=== PATIENT | male | born 1955 | race Caucasian/White ===

== ENCOUNTER 2017-06-30 21:42 | Inpatient (IN) | payer MEDICARE ==
[~2017-06-30] VITALS: Ht 180.3 cm; Wt 91.8 kg
[~2017-06-30 21:42] MED LIST: ALPR0.5T PO; IPRA3AMP IH
[2017-06-30 21:45] VITALS: BP 202/106; PULSE 95; RESP 35; O2SAT 86
[2017-06-30] MEDS ORDERED: Albuterol 2.5 mg/3 mL Inhalation Solution NEB ONE ×3 (21:54→23:00)
[2017-06-30] MEDS ORDERED: Albuterol-Ipratropium 3 mL Inhalation Solution ONE (21:55)
--- NOTE | 2017-06-30 21:57 | ED.REPORT ---
HPI-Dyspnea / Wheezing Date of Service Jun 30, 2017 ED Provider: Louis Herman MD The pt is a 62 year old male with a hx of COPD presenting to the ED complaining of shortness of breath onset three days ago. He admits to using Albuterol and Duoneb at home without relief a few hours ago. Associated symptoms include coughing, wheezing, headache, and abdominal pain. He denies fever, and nausea. Nursing Notes Stated Complaint: PROBLEMS BREATHING Chief Complaint: Respiratory Distress Nursing Notes Reviewed: Yes Allergies: Coded Allergies: No Known Allergies (Verified Allergy, Unknown, 10/09/14) Scheduled Amlodipine (Amlodipine) 5 Mg Tablet 5 MG PO DAILY Scheduled PRN Ipratropium/Albuterol Sulfate (Iprat-Albut 0.5-3(2.5) mg/3 mL Inhalant Soln) 3 Ml Ampul.neb 3 ML IH Q6 PRN PRN dyspnea General Time Seen by MD: 21:56 Chief Complaint Shortness of breath Hx Obtained From: Patient Arrived By: Walk-in Sudden in Onset?: No Onset Occurred: 3 days ago Associated with: Reports: Cough, Wheeze, Denies: Nausea, Vomiting Recent Healthcare: No recent doctor visit, No recent hospitalization Similar Sx Previous: Yes Past Medical History Past Medical History PRIOR MEDICAL ILLNESSES: 1. Chronic obstructive pulmonary disease with emphysema 2. Anxiety. 3. History of left index finger MRSA abscess, received incision and drainage. Reports: COPD Past Surgical History None Smoking History Current Every Day Smoker Review of Systems Constitutional: Denies: Fever Respiratory: Reports: Non-productive cough, Shortness of breath, Wheezing Complete sys rev & neg: except as marked. GI: Reports: Abdominal pain, Denies: Nausea, Vomiting Neurologic: Reports: Headache (from coughing) Physical Exam Initial Vital Signs Vital Signs (First) Date Time Temp Pulse Resp B/P Pulse Ox O2 Delivery O2 Flow Rate FiO2 06/30/17 21:45 37.0 95 35 202/106 86 Room Air 06/30/17 21:59 3 Initial VS: Reviewed, Vital signs abnormal Head / Eyes: Atraumatic, Normocephalic Abdomen / GI: Soft, Non-tender Back: No CVA tenderness Lymphatic: No lymphadenopathy Extremities: Vascular intact Skin: Warm, Dry Neurologic: Alert Psychiatric: Mood/affect normal General/Constitutional: Awake, Alert Distress / Hydration: Positive: Distress moderate Neck: Atraumatic, Supple, Full range of motion Respiratory / Chest: Atraumatic Resp Distress / Stridor: Positive: Resp distress moderate Wheezing / Retractions: Positive: Wheeze insp/exp diffuse Tachypnic Cardiovascular: Heart rate NL, Regular rhythm, Heart sounds NL Interpretation & Diagnostics Interpretation & Diagnostics: BLOOD GAS REPORT: ARTERIAL pH: 7.371 pCO2: 49 pO2: 27.6 Lab Results Interpretation Result Diagram: 06/30/17 2215 06/30/17 2215 Test 06/30/17 22:15 White Blood Count 11.7th/mm3 (3.8-10.1) Red Blood Count 5.33mil/mm3 (4.40-5.80) Hemoglobin 18.0g/dL (13.8-17.2) Hematocrit 51.7% (41.0-50.0) Mean Corpuscular Volume 97.0fL (81-100) Mean Corpuscular Hemoglobin 33.8pg (27.0-35.0) Mean Corpuscular Hemoglobin Concent 34.8% (32.0-37.0) Red Cell Distribution Width 13.5% (12.3-15.4) Platelet Count 280bil/L (150-400) Neutrophils (%) (Auto) 68.0% (40-74) Lymphocytes (%) (Auto) 15.8% (14-46) Monocytes (%) (Auto) 7.5% (4-12) Eosinophils (%) (Auto) 7.7% (0-5) Basophils (%) (Auto) 0.6% (0-3) D-Dimer 0.71mg/L FEU (<0.50) Sodium Level 136mEq/L (134-144) Potassium Level 4.9mEq/L (3.5-5.2) Chloride Level 97mEq/L (97-108) Carbon Dioxide Level 26mmol/L (18-29) Blood Urea Nitrogen 14mg/dL (8-27) Creatinine 0.91mg/dL (0.76-1.27) Estimat Glomerular Filtration Rate 89mL/min (>59) Glucose Level 109mg/dL (60-99) Lactic Acid Level 1.5mmol/L (0.4-2.0) Calcium Level 9.7mg/dL (8.5-10.1) Magnesium Level 1.6mg/dL (1.6-2.6) Total Bilirubin 0.7mg/dL (0.0-1.2) Aspartate Amino Transf (AST/SGOT) 33U/L (0-50) Alanine Aminotransferase (ALT/SGPT) 30U/L (0-44) Alkaline Phosphatase 108U/L (25-160) Troponin T 0.010ug/L (0.0-0.011) Pro-B-Type Natriuretic Peptide 149.3pg/mL (0-210) Total Protein 7.0g/dL (6.4-8.4) Albumin 3.7g/dL (3.4-5.0) Procalcitonin 0.03ng/mL (0.00-0.08) Lab Results Interpretation: Elevated white blood count and elevated hemoglobin and hematocrit, elevated d-dimer ECG Interpretation ECG Interpretation: Probable left atrial enlargement LAD, consider left anterior fascicular block Probable right ventricular hypertrophy Nonspecific ST elevation, consider inferior injury Rate 98 Unchanged from October 09, 2014 Time: 22:09 Interpreted by: ED physician Normal ECG Interpretation: Normal sinus rhythm X-Ray Chest Interpretation Chest Xray Interpretation: Normal X-Ray No evidence of infiltrate Interpretation / Wet Read by: Wet read ED physician Re-Eval/Medical Decision Med Decision/Clinical Course 62-year-old male presents with acute exacerbation of his COPD. He did respond somewhat to bronchodilators and steroids still remains quite tight. There is no evidence of pneumonia. He will be admitted to the hospital service for further evaluation and treatment. Re-Evaluation/Progress : Time of Eval: 00:16 Re-Evaluation/Progress Note: Patient rechecked. Discussed plan to admit. All questions addressed at this time. Consultation : Referral / Consult Name: Jannette Tse DO Consulted With: Hospitalist Call Returned at: 00:35 Automotive Software Engineer: Will see patient, Agrees with plan, Accepts admit Note: Accepts admit. Counseled Regarding: Diagnosis, Lab results, Need for admission Discharge & Departure Referrals: Jett Renteria (PCP) Scribe Attestation Portions of this note were transcribed by Dion Camarena. I, Dr. Herman personally performed the history, physical exam and medical decision-making; I reviewed and confirmed the accuracy of the information in the transcribed note. Signed by: Dave Fuentes, 06/30/2017 copies to: Jett Renteria Howard L MD Jun 30, 2017 21:57 Jun 30, 2017 22:18
[2017-06-30 21:59] VITALS: PULSE 98; RESP 34; O2SAT 95
[2017-06-30] MEDS ORDERED: Albuterol-Ipratropium 3 mL Inhalation Solution NEB ONE (22:00)
[2017-06-30] MEDS ORDERED: MethylprednisoLONE Sodium Succinate 62.5 mg/mL 2 mL Inj IVPUSH ONE (22:00)
--- NOTE | 2017-06-30 22:11 | ABG ---
DateTimeAnalyzed 22:04:00 -_ pH ____7.371 - 7.350 7.450 pCO2 ___48.8__ -mmHg 35.0 45.0 pO2 157 -mmHg 80.0 100 HCO3- ___27.6__ -mmol/L 22.0 26.0 ABE ____1.8__ -mmol/L -2.0 2.0 tHb ___17.9__ -g/dL 12.0 18.0 O2Hb ___96.1__ -% COHb ____2.0__ -% 1.5 MetHb ____0.9__ -% 0.4 1.5 sO2 ___99.0__ -% 95.0 FIO2 ___50.0__ -% Drawn By AF - Date/Time Notified____ 22:11:00 -_ Liter_Flow ____3.0__ -L/min Oxygen Device 1 __CANNULA - Notified By AF - Notified Whom ___Dr. Leibrand - Age 55 -years B 760 -mmHg tO2 ___24.4__ -Vol% Noel test _Positive -
[2017-06-30 22:18] LABS: BASOPHILS % (AUTO) 0.6 % (0-3); EOSINOPHILS % (AUTO) 7.7 % (0-5); MONOCYTES % (AUTO) 7.5 % (4-12); Mean Corpuscular Hemoglobin 33.8 pg (27.0-35.0); Platelet Count 280 bil/L (150-400)
[2017-06-30 22:29] VITALS: BP 145/91; PULSE 93; RESP 30; O2SAT 100
[2017-06-30 22:41] LABS: TROPONIN T 0.01 ug/L (0.0-0.011)
[2017-06-30 22:52] LABS: Magnesium 1.6 mg/dL (1.6-2.6)
[2017-06-30 23:08] VITALS: BP 169/92; PULSE 96; RESP 30; O2SAT 94
[2017-06-30 23:12] VITALS: PULSE 102; RESP 24; O2SAT 97
[2017-07-01] VITALS (14 sets, daily range): BP systolic 115–170; BP diastolic 65–96; PULSE 80–110; RESP 21–42; O2SAT 87–98
[2017-07-01] MEDS ORDERED: Alum-Mag Hydrox-Simeth 30 mL Suspension PO PRN ×2 (01:20→02:35)
[2017-07-01] MEDS ORDERED: Ondansetron 2 mg/mL 2 mL Inj IVPUSH PRN ×2 (01:20→02:35)
[2017-07-01] MEDS ORDERED: Polyethylene Glycol (PEG) 17 Gm Powder PO PRN (02:35)
--- NOTE | 2017-07-01 03:32 | PCM.HPMED ---
Subjective Date of Service Jul 01, 2017 Primary Provider: Admitting Physician: Jannette Tse DO Primary Care Physician: Noprobin Attending Physician: Jannette Tse DO Chief Complaint: Shortness of Breath, Cough History of Present Illness: Patient is a 62 y/o male with past medical history of COPD who has had three days of increased shortness of breath and cough with intermittent yellow sputum production. Patient used his home DuoNeb with Albuterol without any relief. He waited to see if he could get better with time and the symptoms progressively worsened until yesterday when he came to the ED. Patient denies any fever, CP, N/V/D, or urinary symptoms. Patient reports some MENG, mild bilateral lower extremity swelling, and mild ABD pain associated with the cough. Patient lives at home and is active around the house. He denies any recent travel. He denies any history of leg cramps or calf pains. Patient reports that he used to see Dr. Jin when he was his PCP in [place], and that when these symptoms would happen, he would call in some steroids and these would help relieve his symptoms. Patient reports to have never been intubated due to any respiratory failure secondary to his COPD. In the ED patient was given one dose of 125mg Methylpredisolone, DuoNeb treatments and Albuterol with some symptom relief. Patient was placed on 6L NC with an O2 sat of 94% and patient had a RR of 30. Review of Systems: ROS reviewed and otherwise negative unless noted above. Allergies Coded Allergies: No Known Allergies (Verified Allergy, Unknown, 10/09/14) Home Medications Scheduled Alprazolam (Xanax) 0.5 Mg Tablet 0.5 MG PO BID Scheduled PRN Ipratropium/Albuterol Sulfate (Iprat-Albut 0.5-3(2.5) mg/3 mL Inhalant Soln) 3 Ml Ampul.neb 3 ML IH Q6 PRN PRN dyspnea PMH Chronic obstructive pulmonary disease with emphysema Anxiety. History of left index finger MRSA abscess Surgical History Denies any surgical history Family History Father - CAD, [place] at 43. Social History Hx Alcohol Use: Yes (daily- 4 shots) Hx Substance Use: No Hx Tobacco Use: Yes (used to smoke 1 PPD x 40yrs, now down to 4 cigs/day over last 2 months) Smoking Status: Current Every Day Smoker Living Arrangement: with Family Exam Vital Signs Vital Sign - Last Date Time Temp Pulse Resp B/P Pulse Ox O2 Delivery O2 Flow Rate FiO2 07/01/17 01:31 88 21 170/87 93 Nasal Cannula 3 06/30/17 21:45 37.0 Exam Constitutional: Awake, alert and oriented x3, no acute distress Head: normocephalic and atraumatic Eyes: Pupils equal, round, and reactive to light, EOMI, no scleral icterus Mouth: mucous membranes moist, no posterior oropharynx erythema Heart: regular rate and rhythm. no murmurs, rubs, or gallops. 1+ pitting peripheral edema bilaterally. Lungs: Severe diffuse wheeze throughout with coarse rhonchi throughout. Patient on 3L NC. ABD: soft, nontender, bowel sounds present throughout Musculoskeletal: moves all four extremities appropriately Neuro: CN II-XII intact. no focal deficits. Skin: warm, dry, no rash Psych: appropriate mood and affect. Lab and Diagnostics Labs Item Value Date Time Red Blood Count 5.33 mil/mm3 06/30/172214 Mean Corpuscular Volume 97.0 fL 06/30/172214 Mean Corpuscular Hemoglobin 33.8 pg 06/30/172214 Mean Corpuscular Hemoglobin Concent 34.8 % 06/30/172214 Red Cell Distribution Width 13.5 % 06/30/172214 Neutrophils (%) (Auto) 68.0 % 06/30/172214 Lymphocytes (%) (Auto) 15.8 % 06/30/172214 Monocytes (%) (Auto) 7.5 % 06/30/172214 Eosinophils (%) (Auto) 7.7 % H 06/30/172214 Basophils (%) (Auto) 0.6 % 06/30/172214 Estimat Glomerular Filtration Rate 89 mL/min 06/30/172214 Lactic Acid Level 1.5 mmol/L 06/30/172214 Calcium Level 9.7 mg/dL 06/30/172214 Magnesium Level 1.6 mg/dL 06/30/172214 Total Bilirubin 0.7 mg/dL 06/30/172214 Aspartate Amino Transf (AST/SGOT) 33 U/L 06/30/172214 Alanine Aminotransferase (ALT/SGPT) 30 U/L 06/30/172214 Alkaline Phosphatase 108 U/L 06/30/172214 Troponin T 0.010 ug/L 06/30/172214 Pro-B-Type Natriuretic Peptide 149.3 pg/mL 06/30/172214 Albumin 3.7 g/dL 06/30/172214 Total Protein 7.0 g/dL 06/30/172214 Procalcitonin 0.03 ng/mL 06/30/172214 D-Dimer 0.71 mg/L FEU H 06/30/172214 Result Diagram: 06/30/17221406/30/172214 Microbiology Resp Viral PCR pending Influenza pending X-Rays, CTs and MRIs CXR done in ED, no acute cardiopulmonary process, official read pending. CT Chest - official read pending. Assessment & Plan Patient is a 62 y/o male with past medical history of COPD who has had three days of increased shortness of breath and cough with intermittent yellow sputum production. -Acute Exacerbation of Chronic Obstructive Pulmonary Disease, POA, Active, Stable - Patient admitted with cardinal signs of increased shortness of breath, change in sputum color, and failure of improvement with home rescue meds - Start DuoNeb tx Q4 - Start Albuterol PRN Q2 - Start 40mg Prednisone PO daily - Procalcitonin negative, unlikely bacterial pneumonia source - Obtain Viral PCR - Obtain Influenza screen - Supplement O2 and titrate - Acute Hypercapnea, POA, Active, Stable - Patient admission ABG pH 7.37 with CO2 48.8 with bicarb 27.6, patient is a chronic CO2 retainer - Monitor clinically, and repeat ABG if needed - Treat underlying cause with above regimen - Acute Elevated D- Dimer, POA, Active, Stable - Patient D-dimer elevated at 0.71 on admission with no historical/clinical indication for acute DVT or PE. No leg pain, no recent travel/immobility, patient not tachycardic and denies any dyspnea. - CT Chest done in ED with results pending. - Monitor -Acute Hypertension (Uncontrolled), POA, Active, Stable - Patient hypertensive in the SBP 160-170s on admission, denies any current home medications - Start Lisinopril 10mg BID and monitor -Old records reviewed, patient had echo done in Nov 2016 with estimated EF 65-70 %. PATIENT IS FULL CODE Due to the complexity of case and continued need for care, patient is admitted under inpatient status and expected length of stay is greater than 2 midnights. Pain Evaluation: Adequate Pain Control GI Prophylaxis: H2 alla VTE Prophylaxis Indicated: Meets Criteria for Anticoag Therapy VTE Prophylaxis: Sub-Q Heparin (Unfractionated) VTE Mechanical Devices: Intermittant Pneumatic CD Resuscitation Status: CPR: Attempt Resuscitation Attending Statement The patient was seen and examined together with house staff on 07/01/2017 and I agree with the history, exam and plan as outlined in the note above. Los Cartwright DO Jul 01, 2017 03:32 Jannette Tse DO Jul 01, 2017 06:30
[2017-07-01] MEDS ORDERED: Furosemide 10 mg/mL 4 mL Inj IVPUSH ONE (04:10)
[2017-07-01] MEDS ORDERED: AMLO5TAB2 PO (04:24)
[2017-07-01] MEDS: Albuterol 2.5 mg/3 mL Inhalation Solution NEB PRN ×2 (04:38→07:49)
[2017-07-01] MEDS: Albuterol-Ipratropium 3 mL Inhalation Solution NEB SCH ×5 (04:38→19:50)
--- NOTE | 2017-07-01 05:49 | NUR ---
Admit Patient transferred to floor and walked from [facility] to bed which immediately caused his to become more short of breath. Patient began coughing uncontrollably and was unable to slow his breathing. He continued to breathe at a rate of 40-50 respirations/min. Sputum collected and sent to lab, and PCR viral panel collected. New orders for lasix and tessalon pearles. RT called for another breathing treatment. Patient has finally relaxed and dozed off. Respirations have decreased to 25-30. O2 92% on 4L. HR 98. Patient was oriented to room and call light. Will continue to monitor patient closely.
[2017-07-01 07:16] LABS: BASOPHILS % (AUTO) 0.1 % (0-3); EOSINOPHILS % (AUTO) 0.1 % (0-5); Mean Corpuscular Hemoglobin 33.6 pg (27.0-35.0); Mean Corpuscular Volume 96.4 fL (81-100); NEUTROPHILS % (AUTO) 88.2 % (40-74); Platelet Count 298 bil/L (150-400)
--- NOTE | 2017-07-01 08:15 | DRSVH ---
PROCEDURE: CT ANGIO CHEST PULMONARY EMBOLISM ([id number]) INDICATIONS: dyspnea, elev dimer TECHNIQUE: After the administration of intravenous contrast, 2 mm thick sections acquired from the pulmonary api jens to the posterior costophrenic angles. 3-dimensional maximum intensity projection (MIP) coronal a nd sagittal reformats were then acquired through the thorax. For radiation dose reduction, the follo wing was used: automated exposure control, adjustment of mA and/or kV according to patient size. COMPARISON: None. FINDINGS: Image quality: Degraded by motion and beam hardening artifact. Pulmonary arteries: Pulmonary arteries are normal in size, and demonstrate no intraluminal filling d efects to suggest central pulmonary embolism. Lungs and pleura: Lungs are clear. No pleural effusions or pneumothorax. Central and peripheral ai rways are patent. Mediastinum: Heart size is normal, without pericardial effusion. No mediastinal or hilar adenopathy . Thoracic aorta is normal in caliber and enhancement. Esophagus is normal in caliber, without hiat al hernia. Bones and chest wall: No suspicious bony lesions. Ribs and thoracic spine appear intact throughout. Thyroid gland is within normal limits. No axillary or supraclavicular adenopathy. Abdomen: Visualized upper abdominal solid organs appear normal in the early arterial phase of enhanc ement. IMPRESSION: 1. Limited examination demonstrating no large size central pulmonary embolus. Evaluation of the more peripheral pulmonary vasculature is limited by artifact. 2. No evidence of acute process. 3. Concordant with preliminary interpretation. Dictated by: Chanel Price M.D. on 07/01/2017 at 8:09 Approved by: Chanel Price M.D. on 07/01/2017 at 8:13
--- NOTE | 2017-07-01 08:23 | DRSVH ---
PROCEDURE: X-RAY CHEST ONE VIEW, PORTABLE ([id number]) INDICATIONS: dyspnea TECHNIQUE: One view of the chest was acquired. COMPARISON: [facility], , CHEST 1VW (PORTABLE), 10/09/2014, 10:35. [facility], CR, CHEST 1VW (PORTABLE), 08/29/2013, 5:53. FINDINGS: Surgical changes and devices: None. Lungs and pleura: No pleural effusions or pneumothorax. Lungs are clear. Mediastinum: Mediastinal contours appear normal. Heart size is normal. Bones and chest wall: No suspicious bony lesions. Overlying soft tissues appear unremarkable. IMPRESSION: Mildly reduced inspiratory volume. No acute disease. Dictated by: Vasquez Martin M.D. on 07/01/2017 at 8:21 Approved by: Vasquez Martin M.D. on 07/01/2017 at 8:21
[2017-07-01] MEDS ORDERED: predniSONE 20 mg Tablet PO SCH (08:30)
[2017-07-01] MEDS: Heparin 5,000 Unit/mL Inj SUBQ SCH ×2 (08:43→16:49)
--- NOTE | 2017-07-01 11:39 | NUR ---
Social Work-initial assessment/multidisciplinary rounds: Data:See initial assessment. Pt is a 62 y/o male who was admitted on 07/01/17 for acute exacerbation per H&P. Pt's insurance is [facility] and PCP is [facility]. EMR Reviewed. SW met with pt to discuss discharge planning, SW role explained. Pt is alert and oriented x3. Pt resides at home alone where he remains independent with ADLs. Pt uses a fww or cane at baseline and does drive. Pt has no HH or SNF history. Pt has no long-term care insurance or VA benefits. Pt has completed DPOA/ advanced directive, pt has completed this, SW encouraged a copy to be brought in. Pt has no supplemental insurance, SW discussed SHIBA with pt and provided him with information, he is agreeable. No concerns noted regarding pt's capacity for self care, per RN or MD. Pt's friends to provide transport home at discharge. SW provided pt with discharge planning checklist and encouraged pt to call with any questions,phone number provided on white board in room. No anticipated discharge needs. SW will continue to follow if needs arise. Assessment:Pt who is independent at baseline. Plan:Pt to discharge home when medically stable via POV. No anticipated discharge needs. SW will continue to follow if needs arise. DELMIS Ansari Addendum: 07/01/17 at 1146 by BETTINA NORMAN SS Amended: Links added.
[2017-07-01] MEDS ORDERED: LORazepam 1 mg Tablet PO ONE (14:45)
[2017-07-01] MEDS ORDERED: Influenza (Adult) Vaccine 0.5 mL Syringe IM ONE (15:20)
[2017-07-01] MEDS ORDERED: guaiFENesin DM 200-20 mg/10 mL Syrup PO ONE (18:20)
[2017-07-01] MEDS ORDERED: Polyethylene Glycol (PEG) 17 Gm Powder PO ONE (18:25)
[2017-07-01] MEDS: Polyethylene Glycol (PEG) 17 Gm Powder PO SCH (18:26)
--- NOTE | 2017-07-01 18:28 | NUR ---
Respiratory and BM Respiratory RR 20 to 40s depends on pt's emotional state and activity. He is on 3.5L/min by NC with SpO2 range from 88 to 92%. Tessalon pearles and Robitussin DM were given after he had an episode of coughing spell. Will continue to monitor respiratory status. GI Pt. reported he normally has BM every 4 to 5 days. Last BM was 7 days ago. He is constipated. PRN Senna, Miralax, and prune juice were given. No BM at this moment.
[2017-07-01] MEDS: LORazepam 1 mg Tablet PO PRN (18:33)
[2017-07-02] VITALS (14 sets, daily range): BP systolic 108–130; BP diastolic 67–80; PULSE 89–114; RESP 24–33; O2SAT 88–97
[2017-07-02] MEDS: guaiFENesin DM 200-20 mg/10 mL Syrup PO PRN ×2 (00:01→08:25)
[2017-07-02] MEDS: Heparin 5,000 Unit/mL Inj SUBQ SCH ×3 (00:04→16:52)
[2017-07-02] MEDS: Albuterol 2.5 mg/3 mL Inhalation Solution NEB PRN ×3 (00:05→07:46)
[2017-07-02] MEDS: Albuterol-Ipratropium 3 mL Inhalation Solution NEB SCH ×6 (00:07→20:28)
[2017-07-02] MEDS: LORazepam 1 mg Tablet PO PRN ×3 (00:30→16:51)
--- NOTE | 2017-07-02 05:50 | NUR ---
Respiratory Patient continues to have strong, harsh, barking cough with tachypnea and dyspnea at rest. PRN Ativan given for anxiety r/t respiratory status, able to get some sleep last night. Respiratory treatments: nebs, tessalon pearls, and robitussin. Pt voiding in urinal, 4L O2/NC, sats 88-92%. Plan to continue treatment for respiratory status.
[2017-07-02 06:34] LABS: BASOPHILS % (AUTO) 0.1 % (0-3); EOSINOPHILS % (AUTO) 0.3 % (0-5); MONOCYTES % (AUTO) 6.6 % (4-12); NEUTROPHILS % (AUTO) 82.8 % (40-74); Platelet Count 287 bil/L (150-400)
[2017-07-02] MEDS: Polyethylene Glycol (PEG) 17 Gm Powder PO SCH (07:37)
[2017-07-02] MEDS ORDERED: MethylprednisoLONE Sodium Succinate 40 mg/mL Inj IM ONE (07:50)
[2017-07-02] MEDS ORDERED: Azithromycin Inj 500 MG in Dextrose 5% w/Vial Mate 250 ML IV ONE (07:50)
[2017-07-02] MEDS ORDERED: MethylprednisoLONE Sodium Succinate 40 mg/mL Inj IV ONE (08:35)
[2017-07-02] MEDS: MethylprednisoLONE Sodium Succinate 40 mg/mL Inj IVPUSH SCH ×2 (08:38→16:52)
--- NOTE | 2017-07-02 10:16 | NUR ---
Anxiety/SOB Patient awoke shortly after shift change w/ moderate anxiety, diaphoresis, coughing & wheezing. Stated "I don't like all this stuff", in reference to tele wires/continuous pulse ox, etc. Portable telemetry placed, continuous pulse ox removed from finger. RT called for neb tmt d/t significant wheezing/coughing, lorazepam mg, robitussen, tessalon pearles, solu-medrol, admin. Md assessed patient shortly after episode, stated we need to assess for possible transfer to 2nd floor/Bipap, patient currently dozing on & off, states his breathing is better, RR continues to be 30's, no change in mentation, 4L O2 via NC intact. Md asked for home Xanax dose vs Lorazepam per patients request & MS IV for episodes of respiratory distress.
--- NOTE | 2017-07-02 14:18 | NUR ---
Transfer to [facility] Patient transferred to [facility] for Bipap per Md order around 1300. Report given to Lay Hurst RN. O x 3, vitals stable upon transfer. Transported in bed w/ all belongings, chart & azithromycin IV for tomorrow a.m., transported on 4L O2 via NC. Asked Md about changing Lorazepam po to Xanax per patient request, MS IV for respiratory distress, & fleets enema d/t no bm in >11 days. Receiving RN aware patient is requiring an enema as well as his wish to get cleaned up once he's stable.
[2017-07-02 14:36] LABS: BASOPHILS % (AUTO) 0.1 % (0-3); EOSINOPHILS % (AUTO) 0.1 % (0-5); MONOCYTES % (AUTO) 1.3 % (4-12); Mean Corpuscular Hemoglobin 33.9 pg (27.0-35.0); NEUTROPHILS % (AUTO) 92.8 % (40-74); Platelet Count 267 bil/L (150-400)
--- NOTE | 2017-07-02 14:57 | ABG ---
DateTimeAnalyzed 14:54:22 -_ pH ____7.377 - 7.350 7.450 pCO2 ___45.2__ -mmHg 35.0 45.0 pO2 ___96.7__ -mmHg 80.0 100 HCO3- ___26.5__ -mmol/L 22.0 26.0 ABE ____1.1__ -mmol/L -2.0 2.0 tHb ___16.2__ -g/dL 12.0 18.0 O2Hb ___97.1__ -% COHb ____1.7__ -% 1.5 MetHb ____0.0__ -% 0.4 1.5 sO2 ___98.6__ -% 95.0 AaDpO2 __101.8__ -mmHg FIO2 ___35.0__ -% Drawn By rs - Date/Time Notified____ 14:56:00 -_ Oxygen Device 1 ____BIPAP - Notified By rs - Notified Whom SONG, JONGWOO - Age 55 -years K+ ____4.9__ -mmol/L 3.5 5.0 Noel test _Positive -
[2017-07-02 15:10] LABS: Magnesium 1.6 mg/dL (1.6-2.6); Phosphorus 2.3 mg/dL (2.5-4.9)
--- NOTE | 2017-07-02 15:54 | NUR ---
took over patient care from SVEN Gibbsadrian Andrews 1550 Addendum: 07/02/17 at 1727 by ADAM RUDOLPH CNA transferred patient care back to 172
--- NOTE | 2017-07-02 16:20 | NUR ---
Transfer, Bowel Movement 1255 - Received report from Chandni Ortiz RN on [facility]. 1310 - He arrived from [facility] 3015 to [facility] 2005 and was settled into his room. His chart, belongings, and medications were brought with him. Respiratory Therapist Christina Walters came and set up the BiPAP for him. 1620 - He has worn the BiPAP most of the time except when using the restroom. He refused to wear any kind of O2 the first time and the second time he accepted 4L of O2 via a nasal cannula. Education was provided for him, but he still didn't want to use BiPAP. He became even more short of breath afterwards and requested to be placed back on the BiPAP which he was. He was finally able to have a bowel movement this afternoon after not having one for 11-12 days. Care continues. Addendum: 07/02/17 at 1833 by ALURA ROTHMAN RN 1826 - Dr. Devries called and was given a verbal update on his condition. He wanted staff to watch him closely during the night. Care continues.
[2017-07-02] MEDS ORDERED: cefTRIAXone Inj 2,000 MG in Dextrose 5% Minibag Plus 50 ML IV ONE (16:35)
--- NOTE | 2017-07-02 16:54 | PCM.PNMED ---
Subjective Date of Service Jul 02, 2017 Subjective pt still had tachypnea 30s with persistent cough, maintain his mentation hypoxia continued. therefore prednisone switched to solu-medrol. pt was transferred to [facility] for BiPAP. ABG on Fio2 35% showed PCo2 45, Po296 seems to be comfortable on BiPAP. CXR showed new left base opacity, abx started. Exam Vital Signs Vital Sign - Last Date Time Temp Pulse Resp B/P Pulse Ox O2 Delivery O2 Flow Rate FiO2 07/02/17 13:22 36.8 99 24 127/77 88 Nasal Cannula 4.00 Intake and Output 07/01/17 07/01/17 07/02/17 Cumulative From/Thru 15:00 23:00 07:00 06/30/17 21:45 - 07/02/17 05:48 Intake Total 966 ml 708 ml 1674 ml Output Total 1900 ml 400 ml 2300 ml Balance -934 ml 308 ml -626 ml Intake Oral 966 ml 708 ml 1674 ml Output Urine Total 1900 ml 400 ml 2300 ml # Voids 1 1 Exam Very distressed with persistent cough and SOB. using accessory m, labored no JVD, MMM, no LAD tachycardic nl s1, s2 no mrg polyphasic prolonged exp wheezing, no crackles, S,ND,NT,normoactive BS+ warm, no edema, pulses 2/2 IVs and Medications Medications Reviewed: Medications were reviewed in detail Lab and Diagnostics Result Diagram: 07/02/17 1426 07/02/17 142 Microbiology Resp Viral PCR pending Influenza pending X-Rays, CTs and MRIs CXR done in ED, no acute cardiopulmonary process, official read pending. CT Chest - official read pending. Assessment & Plan Patient is a 62 y/o male with past medical history of COPD who has had three days of increased shortness of breath and cough with intermittent yellow sputum production. Acute, actrive Acute hypercapnic respiratory failure secondary to COPD exacerbation, POA, inital CTA unremarkable, no PE, no infiltrate. CXR clean. infectious w/u resp PCR, sputum, flu all ngtd. -clinically worse today, switched prednisone to solu-medrol 40mg q6h, -continue duonebs q4h, albuterol q2h prn, -BiPAP started 07/02 pm, serial ABG if needed. -consider consulting pulmonary if clinically worsens, any deterioration of MS. -O2 supplement target>92-95%, pt doesn't have baseline hypercapnia. -started CFX, azithromycin today given CXR finding, new infiltrate at left base chronic, stable, Hypertension (Uncontrolled), Patient hypertensive in the SBP 160-170s on admission, denies any current home medications, Started Lisinopril 10mg BID and monitor -controlled, continue ACEI for now -Old records reviewed, patient had echo done in Nov 2016 with estimated EF 65-70 %. PATIENT IS FULL CODE dispo: pending, prolonged. GI Prophylaxis: H2 alla VTE Prophylaxis: Sub-Q Heparin (Unfractionated) VTE Mechanical Devices: Intermittant Pneumatic CD Resuscitation Status: CPR: Attempt Resuscitation Time spent 35min Angel Luis Devries MD Jul 02, 2017 16:54
--- NOTE | 2017-07-02 17:28 | DRSVH ---
PROCEDURE: X-RAY CHEST ONE VIEW, PORTABLE ([id number]) INDICATIONS: severe respiratory distress TECHNIQUE: One view of the chest was acquired. COMPARISON: [facility], CT, CT ANGIO CHEST PE, 07/01/2017, 3:17. [facility], CR, XR CHEST 1VW (PORTABLE), 06/30/2017, 22:23. FINDINGS: Surgical changes and devices: None. Lungs and pleura: No pleural effusions or pneumothorax. Lungs are clear, aside from air space opaci ty involving the left lung base. Mediastinum: Mediastinal contours appear normal. Heart size is normal. Bones and chest wall: No suspicious bony lesions. Overlying soft tissues appear unremarkable. IMPRESSION: Left basilar atelectasis versus aspiration or pneumonia. Correlate clinically. Dictated by: Ravindra Whitt RRA Interpreted: Vasquez Martin MD on 07/02/2017 at 14:59 Approved by: Vasquez Martin M.D. on 07/02/2017 at 17:24
--- NOTE | 2017-07-02 21:53 | NUR ---
Patient refused to wear bipap even after settings were adjusted, Rn informed patient on 2L NC and stat are WNL no distress noted
[2017-07-03] VITALS (13 sets, daily range): BP systolic 131–155; BP diastolic 80–96; PULSE 88–100; RESP 18–24; O2SAT 90–96
[2017-07-03] MEDS: MethylprednisoLONE Sodium Succinate 40 mg/mL Inj IVPUSH SCH ×3 (00:10→17:18)
[2017-07-03] MEDS: LORazepam 1 mg Tablet PO PRN ×2 (00:10→10:05)
[2017-07-03] MEDS: Heparin 5,000 Unit/mL Inj SUBQ SCH ×3 (00:11→17:18)
[2017-07-03] MEDS: Albuterol-Ipratropium 3 mL Inhalation Solution NEB SCH ×6 (00:56→20:38)
[2017-07-03] MEDS: guaiFENesin DM 200-20 mg/10 mL Syrup PO PRN (02:30)
[2017-07-03 02:38] LABS: BASOPHILS % (AUTO) 0.1 % (0-3); EOSINOPHILS % (AUTO) 0 % (0-5); MONOCYTES % (AUTO) 3.9 % (4-12); Mean Corpuscular Hemoglobin 34.2 pg (27.0-35.0); Mean Corpuscular Volume 98.2 fL (81-100); Platelet Count 294 bil/L (150-400)
[2017-07-03 03:03] LABS: Magnesium 1.8 mg/dL (1.6-2.6)
--- NOTE | 2017-07-03 03:54 | NUR ---
Respiratory Pt only able to tolerate bipap for short periods of time. RT educated pt on importance of wearing and pt still declines. Pt placed on 2L NC and SpO2 WNL. Pt has persistent non productive cough, administered PRN Robitussin DM and effective. VSS and Tele SR/T
[2017-07-03] MEDS ORDERED: Glucose 40% Oral Gel 15 Gm Tube PO PRN (06:45)
[2017-07-03] MEDS: Insulin LISPRO 300 Unit/3 mL Inj SUBQ SCH ×4 (08:00→21:22)
[2017-07-03] MEDS: Polyethylene Glycol (PEG) 17 Gm Powder PO SCH (08:30)
[2017-07-03] MEDS: Azithromycin Inj 500 MG in Dextrose 5% w/Vial Mate 250 ML IV SCH (08:42)
[2017-07-03] MEDS: guaiFENesin 600 mg ER12 Tablet PO SCH ×2 (09:27→21:19)
[2017-07-03] MEDS ORDERED: Albuterol-Ipratropium 3 mL Inhalation Solution NEB PRN (10:45)
[2017-07-03] MEDS ORDERED: fentaNYL-PF 50 mCg/mL 2 mL Inj IVPUSH ONE (10:55)
[2017-07-03] MEDS ORDERED: fentaNYL-PF 50 mCg/mL 2 mL Inj IVPUSH PRN ×2 (11:20→17:20)
--- NOTE | 2017-07-03 11:33 | PCM.PNMED ---
Subjective Date of Service Jul 03, 2017 Subjective Upon examination today the patient complains of SOB and productive cough, he states that he "Does not get along with" the Bpap. He otherwise denies chest pain, abdominal pain, nausea, vomiting, or diarrhea. He does endorse some anxiety beyond his baseline, mostly due to SOB. He explains that he essentially has no prescription drug coverage thus he is not taking any medication at home. He smokes approximately 4-5 cigarettes per day. Overnight the patient worsened in terms of respiratory status with desaturation , he was transitioned to a Bpap and transferred to the [facility]. Exam Vital Signs Vital Sign - Last Date Time Temp Pulse Resp B/P Pulse Ox O2 Delivery O2 Flow Rate FiO2 07/03/17 08:09 36.7 90 24 131/83 92 Nasal Cannula 2.00 07/03/17 00:56 30 Intake and Output 07/02/17 07/02/17 07/03/17 Cumulative From/Thru 15:00 23:00 07:00 06/30/17 21:45 - 07/03/17 06:50 Intake Total 436 ml 695 ml 2805 ml Output Total 200 ml 1100 ml 3600 ml Balance 236 ml -405 ml -795 ml Intake Oral 436 ml 630 ml 2740 ml IV Total 65 ml 65 ml Output Urine Total 200 ml 1100 ml 3600 ml # Voids 1 Exam Gen: A/O x3 pleasant cooperative gentleman in moderate acute distress secondary to SOB and anxiety Neck: Supple, non tender, no JVD HEENT: PERRL, EOMI, no scleral icterus, mucous membranes dry CV: RRR, no murmurs rubs or gallops Resp: Significant diffuse rhoncorous breath sounds with diffuse expiratory wheezing, increased work of breathing with good air movement, wet sounding cough Abd: Soft, non tender, no rebound masses or guarding Extr: Clubbing of digits BL, no cyanosis, mild BL LE pitting edema Neuro: CN 2-12 grossly intact, no focal neurologic deficit Psych: Patient with significant anxiety about his SOB, otherwise pleasant and cooperative. . IVs and Medications Medications Reviewed: Medications were reviewed in detail Lab and Diagnostics Item Value Date Time Red Blood Count 4.94 mil/mm3 07/03/17224 Mean Corpuscular Volume 98.2 fL 07/03/17224 Mean Corpuscular Hemoglobin 34.2 pg 07/03/17224 Mean Corpuscular Hemoglobin Concent 34.8 % 07/03/17224 Red Cell Distribution Width 13.2 % 07/03/17224 Neutrophils (%) (Auto) 87.0 % H 07/03/17224 Lymphocytes (%) (Auto) 8.3 % L 07/03/17224 Monocytes (%) (Auto) 3.9 % L 07/03/17224 Eosinophils (%) (Auto) 0 % 07/03/17224 Basophils (%) (Auto) 0.1 % 07/03/17224 Estimat Glomerular Filtration Rate 69 mL/min 07/03/17224 Calcium Level 9.4 mg/dL 07/03/17224 Phosphorus Level 3.0 mg/dL 07/03/17224 Magnesium Level 1.8 mg/dL 07/03/17224 Aspartate Amino Transf (AST/SGOT) 25 U/L 07/03/17224 Total Bilirubin 0.2 mg/dL 07/03/17224 Alanine Aminotransferase (ALT/SGPT) 29 U/L 07/03/17224 Alkaline Phosphatase 87 U/L 07/03/17224 Total Protein 6.3 g/dL L 07/03/17224 Albumin 3.8 g/dL 07/03/17224 Result Diagram: 07/03/1722407/03/17224 Microbiology Resp Viral PCR pending Influenza pending X-Rays, CTs and MRIs CT ANGIO CHEST PULMONARY EMBOLISM IMPRESSION: 1. Limited examination demonstrating no large size central pulmonary embolus. Evaluation of the more peripheral pulmonary vasculature is limited by artifact. 2. No evidence of acute process. 3. Concordant with preliminary interpretation. Dictated by: Chanel Price M.D. on 07/01/2017 at 8:09 Approved by: Chanel Price M.D. on 07/01/2017 at 8:13 X-RAY CHEST ONE VIEW, PORTABLE IMPRESSION: Left basilar atelectasis versus aspiration or pneumonia. Correlate clinically. Dictated by: Ravindra Whitt RRA Interpreted: Vasquez Martin MD on 07/02/2017 at 14 :59 Approved by: Vasquez Martin M.D. on 07/02/2017 at 17:24 . Assessment & Plan Patient is a 62 y/o male with past medical history of COPD who has had three days of increased shortness of breath and cough with intermittent yellow sputum production. Following admission the patient decompensated from a respiratory standpoint and was transitioned to Bpap. Acute hypercapnic respiratory failure secondary to COPD exacerbation, POA, Active -inital CTA unremarkable, no PE, no infiltrate. CXR clean.Procalc negative -Solu-medrol 40 mg Q8 -continue duonebs q4h scheduled with Q4 PRN alternating, albuterol q2h prn, -BiPAP started 07/02 pm, serial ABG if needed. -Pulmonary medicine has been consulted and we appreciate their recommendations -O2 supplement target>92-95%, pt doesn't have baseline hypercapnia. -started CFX, azithromycin today given CXR finding, new infiltrate at left base Hypertension (Uncontrolled), -Started Lisinopril 10mg BID and monitor -controlled, continue ACEI for now Anxiety, POA, chronic. Active -Using Xanax 0.5 mg PO PRN, this is a substantial reduction of his home dosing so as not to induce respiratory depression. -Old records reviewed, patient had echo done in Nov 2016 with estimated EF 65-70 %. PATIENT IS FULL CODE dispo: Patient will likely have a somewhat protracted hospital stay given his poorly controlled disease and lack of outpatient resources. All efforts should be made to connect the patient with insurance services to get prescription drug coverage; otherwise re-admission is highly likely. Anticipate DC in 3-5 days pending response to medical therapy. . Pain Evaluation: Adequate Pain Control GI Prophylaxis: H2 alla VTE Prophylaxis: Sub-Q Heparin (Unfractionated) VTE Mechanical Devices: Intermittant Pneumatic CD Resuscitation Status: CPR: Attempt Resuscitation Time spent 25 minutes Attending Statement Patient has been seen and examined by myself with registered medical assistant and agree with above history, physical, assessment and plan. Eliud Ahuja DO Jul 03, 2017 11:33 Danni Singleton MD Jul 03, 2017 15:34
--- NOTE | 2017-07-03 14:50 | PCM.PNMED ---
Subjective Date of Service Jul 03, 2017 Subjective /Pulmonary Consultation Note Mr. Chun is a 62 yo male who presented to the hospital for worsening SOB and CLARK x 3-4 days. Patient reports that his breathing status has been worse in the last month, but severely deteriorated in the last week. He denies any recent sick contact and also denies any F/C, CP. N/V, or rash. He has noted an increase in his cough and some mild clear phlegm production. He also endorses a mild MENG and constipation. He noted that he was not able to walk more than 10 feet before becoming severely dyspneic. He states that he is not able to afford any inhalers, so he did not have any at home. He has been diagnosed with COPD for a long time now and has over 40 pack year history of tobacco usage and currently smokes 3-4 cigarettes a day. He denies any previous exacerbations requiring hospitalizations or intubations, but reports that he does receive steroid tapers and antibiotics 1-2x a year. During this admission, he so far has been treated with IV steroids and scheduled Duonebs for his COPD exacerbation. He has been requiring 3-6 Liters of O2 by NC or Oxymask to maintain saturations, but is still fairly tachypneic and working hard to breath. He had a blood gas on 06/30 that showed mild hypercapnia with pCO2 of 48.8 and a pO2 of 157 while on 3 L of NC. He was placed on BiPAP due to his increased work of breathing and hypercapnia. There was also note of a LLL infiltrate that has been presumed to be CAP, so he was placed on Ceftriaxone and Azithromycin. Exam Vital Signs Vital Sign - Last Date Time Temp Pulse Resp B/P Pulse Ox O2 Delivery O2 Flow Rate FiO2 07/03/17 12:20 36.0 93 22 134/88 92 BiPAP 07/03/17 12:03 30 07/03/17 08:09 2.00 Intake and Output 07/02/17 07/02/17 07/03/17 Cumulative From/Thru 15:00 23:00 07:00 06/30/17 21:45 - 07/03/17 06:50 Intake Total 436 ml 695 ml 2805 ml Output Total 200 ml 1100 ml 3600 ml Balance 236 ml -405 ml -795 ml Intake Oral 436 ml 630 ml 2740 ml IV Total 65 ml 65 ml Output Urine Total 200 ml 1100 ml 3600 ml # Voids 1 Exam Gen: A/O x3 pleasant cooperative gentleman in moderate acute respiratory distress while on 3L O2 by NC. HEENT: PERRL, EOMI, no scleral icterus, mucous membranes mildly dry Neck: Supple, non tender, no JVD noted CV: RRR, no murmurs rubs or gallops, peripheral pulses intact and equal Resp: Severe diffuse Rhonchi with diffuse moderate expiratory wheezing, Mildly tachypneic at rest but speaks full sentences, wet sounding cough, barrel chested Abd: Soft, non tender, no rebound masses or guarding, +BS Extr: Moderate clubbing of all distal digits, no cyanosis, Trace bilateral pedal pitting edema Neuro: Grossly intact, no focal weakness Skin: Mildly diaphoretic, but warm Psych: Patient with significant anxiety about his SOB, otherwise pleasant and cooperative. . IVs and Medications Medications Reviewed: Medications were reviewed in detail Lab and Diagnostics Result Diagram: 07/03/1722407/03/17224 X-Rays, CTs and MRIs CT ANGIO CHEST PULMONARY EMBOLISM IMPRESSION: 1. Limited examination demonstrating no large size central pulmonary embolus. Evaluation of the more peripheral pulmonary vasculature is limited by artifact. 2. No evidence of acute process. 3. Concordant with preliminary interpretation. Dictated by: Chanel Price M.D. on 07/01/2017 at 8:09 Approved by: Chanel Price M.D. on 07/01/2017 at 8:13 X-RAY CHEST ONE VIEW, PORTABLE IMPRESSION: Left basilar atelectasis versus aspiration or pneumonia. Correlate clinically. Dictated by: Ravindra Whitt [facility] Interpreted: Vasquez Martin MD on 07/02/2017 at 14 :59 Approved by: Vasquez Martin M.D. on 07/02/2017 at 17:24 . Additional Diagnostics DateTimeAnalyzed 14:54:22 -_ pH ____7.377 - 7.350 7.450 pCO2 ___45.2__ -mmHg 35.0 45.0 pO2 ___96.7__ -mmHg 80.0 100 HCO3- ___26.5__ -mmol/L 22.0 26.0 ABE ____1.1__ -mmol/L -2.0 2.0 tHb ___16.2__ -g/dL 12.0 18.0 O2Hb ___97.1__ -% COHb ____1.7__ -% 1.5 MetHb ____0.0__ -% 0.4 1.5 sO2 ___98.6__ -% 95.0 AaDpO2 __101.8__ -mmHg FIO2 ___35.0__ -% Drawn By rs - Date/Time Notified____ 14:56:00 -_ Oxygen Device 1 ____BIPAP - Notified By rs - Assessment & Plan Patient is a 62 y/o male with past medical history of COPD who has had three days of increased shortness of breath and cough with intermittent yellow sputum production. Following admission the patient had increased Work of breathing, so he was transitioned to Bipap. Acute on chronic hypercapnic hypoxemic respiratory failure secondary to COPD exacerbation, POA, Active -CTA unremarkable on admission other than COPD. -Continue Duonebs q4h scheduled and PRN Albuterol. Continue Solumedrol with plans for titration as he responds to therapy -Continue BiPAP at 12/6. Continue to wean down as tolerated -With his Severe COPD, will titrate O2 target at 88-92% -Reasonable to continue Ceftriaxone an Azithromycin due to the new LLL infiltrate -Can give Fentanyl 50mcg Q4h for anxiety, respiratory distress, or air hunger. He has responded well to fentanyl which improved his work of breathing and ventilation while on Bipap. - Encourage Acapella and PT as tolerated -Repeat ABG and CXR in AM Hypertension (Uncontrolled), -Stable, as managed by primary team Anxiety, POA, chronic. Active -Preferably use the Fentanyl for his anxiety and air hunger. Hyperglycemia, POA HgbA1c pending, likely due to steroid usage. We appreciate the consult, will continue follow along with this patient until he is more stable respiratory lane Pain Evaluation: Adequate Pain Control GI Prophylaxis: H2 alla VTE Prophylaxis: Sub-Q Heparin (Unfractionated) VTE Mechanical Devices: Intermittant Pneumatic CD Resuscitation Status: CPR: Attempt Resuscitation Time spent Total care time spent in direct patient care 45 minutes. Attending Statement Tobacco counseling performed at bedside. We will continue to help the patient with smoking cessation. Patient seen and examined. Pertinent labs and imaging reviewed. Findings reviewed and discussed with the resident. Amendments made verbally with the resident and/or directly on this document. Agree with the above. Miki Raymond DO Jul 03, 2017 12:33 Rusty Mota MD Jul 03, 2017 15:21
[2017-07-03] MEDS ORDERED: 0.9% Sodium Chloride 1,000 ML IV ONE (14:55)
[2017-07-03] MEDS ORDERED: cefTRIAXone Inj 2,000 MG in Dextrose 5% Minibag Plus 50 ML IV SCH (16:30)
--- NOTE | 2017-07-03 16:59 | ABG ---
DateTimeAnalyzed 16:54:42 -_ pH ____7.394 - 7.350 7.450 pCO2 ___47.9__ -mmHg 35.0 45.0 pO2 ___61.6__ -mmHg 80.0 100 HCO3- ___29.3__ -mmol/L 22.0 26.0 ABE ____3.7__ -mmol/L -2.0 2.0 tHb ___16.1__ -g/dL 12.0 18.0 O2Hb ___90.6__ -% COHb ____2.0__ -% 1.5 MetHb ____0.0__ -% 0.4 1.5 sO2 ___92.1__ -% 95.0 AaDpO2 ___32.3__ -mmHg FIO2 ___21.0__ -% Drawn By NB - Date/Time Notified____ 16:59:00 -_ Notified By NB - Age 55 -years K+ ____4.5__ -mmol/L 3.5 5.0 Noel test _Positive -
--- NOTE | 2017-07-03 19:50 | NUR ---
BiPAP Pt unable to tolerate BiPAP per NOC report and Pt. Md instructed to attempt BiPAP with 100mcg fentanyl push, Pt monitored closely on BiPAP after administration of the fentanyl. Pt was able to tolerate BiPAP for several hours before requesting it removed for lunchtime through dinner. Pt's ABGs draw this afternoon ~1 hour after removing BiPAP, risk management specialist updated.
[2017-07-03] MEDS: ALPRAZolam 0.5 mg Tablet PO PRN (21:15)
[2017-07-04] VITALS (12 sets, daily range): BP systolic 133–160; BP diastolic 80–97; PULSE 79–104; RESP 18–28; O2SAT 91–95
[2017-07-04] MEDS: Albuterol-Ipratropium 3 mL Inhalation Solution NEB SCH ×5 (00:34→20:33)
[2017-07-04] MEDS: MethylprednisoLONE Sodium Succinate 40 mg/mL Inj IVPUSH SCH ×3 (00:50→20:48)
[2017-07-04] MEDS: Heparin 5,000 Unit/mL Inj SUBQ SCH ×3 (00:52→17:18)
[2017-07-04 03:11] LABS: BASOPHILS % (AUTO) 0.1 % (0-3); EOSINOPHILS % (AUTO) 0 % (0-5); MONOCYTES % (AUTO) 5.3 % (4-12); Mean Corpuscular Hemoglobin 33.4 pg (27.0-35.0); Mean Corpuscular Volume 97.9 fL (81-100); NEUTROPHILS % (AUTO) 84.5 % (40-74); Platelet Count 293 bil/L (150-400)
[2017-07-04 03:27] LABS: INR 0.95 ratio
[2017-07-04 04:02] LABS: Magnesium 1.9 mg/dL (1.6-2.6); Phosphorus 3.3 mg/dL (2.5-4.9)
--- NOTE | 2017-07-04 05:26 | ABG ---
DateTimeAnalyzed 05:24:44 -_ pH ____7.424 - 7.350 7.450 pCO2 ___47.5__ -mmHg 35.0 45.0 pO2 ___67.7__ -mmHg 80.0 100 HCO3- ___31.1__ -mmol/L 22.0 26.0 ABE ____5.8__ -mmol/L -2.0 2.0 tHb ___17.4__ -g/dL 12.0 18.0 O2Hb ___93.2__ -% COHb ____1.9__ -% 1.5 MetHb ____0.0__ -% 0.4 1.5 sO2 ___94.7__ -% 95.0 AaDpO2 ___76.7__ -mmHg FIO2 ___28.0__ -% Drawn By MK - Date/Time Notified____ 05:26:00 -_ Liter_Flow ____2.00_ -L/min Oxygen Device 1 __CANNULA - Notified By MK - Age 55 -years K+ ____4.4__ -mmol/L 3.5 5.0 Noel test _Positive -
--- NOTE | 2017-07-04 05:39 | NUR ---
Respiratory Pt unable to tolerate bipap for more than 2 hours. Pt SpO2 on 1L NC is 89-93%. Pt received PRN Tesslon pearls for cough. Pt having difficultly clearing secretions and has a loud barking cough.. VSS and Tele SR
[2017-07-04] MEDS: ALPRAZolam 0.5 mg Tablet PO PRN ×3 (05:53→20:19)
[2017-07-04] MEDS ORDERED: Dextrose 10% 250 ML IV PRN (07:15)
[2017-07-04] MEDS: Insulin LISPRO 300 Unit/3 mL Inj SUBQ SCH ×4 (08:00→23:11)
[2017-07-04] MEDS: Azithromycin Inj 500 MG in Dextrose 5% w/Vial Mate 250 ML IV SCH (08:08)
[2017-07-04] MEDS: Polyethylene Glycol (PEG) 17 Gm Powder PO SCH (08:09)
[2017-07-04] MEDS: guaiFENesin 600 mg ER12 Tablet PO SCH ×2 (08:09→20:12)
--- NOTE | 2017-07-04 11:04 | PCM.PNMED ---
Subjective Date of Service Jul 04, 2017 Subjective Patient states that he feels very much improved compared to admission, though he still complains of a productive cough which can be quite bothersome. He states that his breathing feels improved, but not quite back to baseline. He denies fevers/chills, nausea, vomiting, or diarrhea. No significant overnight events. Exam Vital Signs Vital Sign - Last Date Time Temp Pulse Resp B/P Pulse Ox O2 Delivery O2 Flow Rate FiO2 07/04/17 07:55 36.9 92 24 158/97 92 Nasal Cannula 1.00 07/03/17 21:58 25 Intake and Output 07/03/17 07/03/17 07/04/17 Cumulative From/Thru 15:00 23:00 07:00 06/30/17 21:45 - 07/04/17 05:27 Intake Total 2033 ml 598 ml 5436 ml Output Total 875 ml 1700 ml 6175 ml Balance 1158 ml -1102 ml -739 ml Intake Oral 708 ml 598 ml 4046 ml IV Total 1325 ml 1390 ml Output Urine Total 875 ml 1700 ml 6175 ml # Voids 1 # Bowel Movements 0 0 Exam Gen: A/O x3 pleasant cooperative gentleman in mild acute distress secondary to cough Neck: Supple, non tender, no JVD HEENT: PERRL, EOMI, no scleral icterus, mucous membranes dry CV: RRR, no murmurs rubs or gallops Resp: Diffuse rhoncorous breath sounds with diffuse expiratory wheezing improved since prior exam, productive cough which only minimally improves breath sounds Abd: Soft, non tender, no rebound masses or guarding Extr: Clubbing of digits BL, no cyanosis, mild BL LE pitting edema Neuro: CN 2-12 grossly intact, no focal neurologic deficit Psych: Pleasant and cooperative mood and affect . IVs and Medications Medications Reviewed: Medications were reviewed in detail Lab and Diagnostics Item Value Date Time Red Blood Count 5.12 mil/mm3 07/04/17244 Mean Corpuscular Volume 97.9 fL 07/04/17244 Mean Corpuscular Hemoglobin 33.4 pg 07/04/17244 Mean Corpuscular Hemoglobin Concent 34.1 % 07/04/17244 Red Cell Distribution Width 13.2 % 07/04/17244 Neutrophils (%) (Auto) 84.5 % H 07/04/17244 Lymphocytes (%) (Auto) 9.5 % L 07/04/17244 Monocytes (%) (Auto) 5.3 % 07/04/17244 Eosinophils (%) (Auto) 0 % 07/04/17244 Basophils (%) (Auto) 0.1 % 07/04/17244 Estimat Glomerular Filtration Rate 103 mL/min 07/04/17244 Calcium Level 9.4 mg/dL 07/04/17244 Phosphorus Level 3.3 mg/dL 07/04/17244 Magnesium Level 1.9 mg/dL 07/04/17244 Procalcitonin 0.06 ng/mL 07/04/17244 Result Diagram: 07/04/1724407/04/17244 Microbiology Resp Viral PCR pending Influenza pending X-Rays, CTs and MRIs CT ANGIO CHEST PULMONARY EMBOLISM IMPRESSION: 1. Limited examination demonstrating no large size central pulmonary embolus. Evaluation of the more peripheral pulmonary vasculature is limited by artifact. 2. No evidence of acute process. 3. Concordant with preliminary interpretation. Dictated by: Chanel Price M.D. on 07/01/2017 at 8:09 Approved by: Chanel Price M.D. on 07/01/2017 at 8:13 X-RAY CHEST ONE VIEW, PORTABLE IMPRESSION: Left basilar atelectasis versus aspiration or pneumonia. Correlate clinically. Dictated by: Ravindra Whitt RRA Interpreted: Vasquez Martin MD on 07/02/2017 at 14 :59 Approved by: Vasquez Martin M.D. on 07/02/2017 at 17:24 . Assessment & Plan Patient is a 62 y/o male with past medical history of COPD who has had three days of increased shortness of breath and cough with intermittent yellow sputum production. The patient is much improved compared to his state when he transferred to this floor, though remains SOB compared to baseline with a significant productive cough. Acute hypercapnic respiratory failure secondary to COPD exacerbation, POA, Active -inital CTA unremarkable, no PE, no infiltrate. CXR clean.Procalc negative -Solu-medrol 40 mg Q8 -continue duonebs q4h scheduled with Q4 PRN alternating, albuterol q2h prn, -BiPAP started 9/27 pm, serial ABG if needed. -Pulmonary medicine has been consulted and we appreciate their recommendations -O2 supplement target>92-95%, pt doesn't have baseline hypercapnia. -Will DC Ceftriaxone as Procalc has been negative twice and WBC elevation is consistent with steroids, will maintain azithromycin for immunological properties Hypertension (Uncontrolled), POA, assumed chronic. Improved -Started Lisinopril 10mg BID and monitor -controlled, continue ACEI for now Anxiety, POA, chronic. Active -Using Xanax 0.5 mg PO PRN, this is a substantial reduction of his home dosing so as not to induce respiratory depression. -Old records reviewed, patient had echo done in Nov 2016 with estimated EF 65-70 %. PATIENT IS FULL CODE dispo: Patient will likely have a somewhat protracted hospital stay given his poorly controlled disease and lack of outpatient resources. All efforts should be made to connect the patient with insurance services to get prescription drug coverage; otherwise re-admission is highly likely. Anticipate DC in 2-3 days pending response to medical therapy. . Pain Evaluation: Adequate Pain Control GI Prophylaxis: H2 alla VTE Prophylaxis: Sub-Q Heparin (Unfractionated) VTE Mechanical Devices: Intermittant Pneumatic CD Resuscitation Status: CPR: Attempt Resuscitation Time spent 25 minutes Attending Statement Patient has been seen and examined by myself with medical practice assistant and agree with above history, physical, assessment and plan. Eliud Ahuja DO Jul 04, 2017 11:04 Danni Singleton MD Jul 04, 2017 15:15
--- NOTE | 2017-07-04 15:30 | NUR ---
Evaluation completed. Please go to "Notes" then click on "Assessments and Notes" (bottom left corner of screen). Then select appropriate discipline tab on top of screen.
[2017-07-04] MEDS ORDERED: MethylprednisoLONE Sodium Succinate 40 mg/mL Inj IVPUSH ONE (17:00)
[2017-07-04] MEDS ORDERED: 0.9% Sodium Chloride 500 ML IV ONE (17:05)
--- NOTE | 2017-07-04 17:33 | PCM.PNMED ---
Subjective Date of Service Jul 04, 2017 Subjective Pulmonology Progress Note Mr. Chun is a 62 yo male who presented to the hospital for worsening SOB and CLARK x 3-4 days. Overnight: No acute events or decompensation. He was afebrile and saturating well on 1-2 L of O2 when not on BiPAP. This morning, he reports that he is feeling better. He has no complaints other than his persistent cough. Exam Vital Signs Vital Sign - Last Date Time Temp Pulse Resp B/P Pulse Ox O2 Delivery O2 Flow Rate FiO2 07/04/17 05:23 84 26 93 Nasal Cannula 2.00 07/04/17 02:45 36.7 160/94 07/03/17 21:58 25 Intake and Output 07/03/17 07/03/17 07/04/17 Cumulative From/Thru 15:00 23:00 07:00 06/30/17 21:45 - 07/04/17 05:27 Intake Total 2033 ml 598 ml 5436 ml Output Total 875 ml 1700 ml 6175 ml Balance 1158 ml -1102 ml -739 ml Intake Oral 708 ml 598 ml 4046 ml IV Total 1325 ml 1390 ml Output Urine Total 875 ml 1700 ml 6175 ml # Voids 1 # Bowel Movements 0 0 Exam Gen: A/O x3 pleasant cooperative gentleman in moderate acute respiratory distress while on 2L O2 by NC. HEENT: PERRL, EOMI, no scleral icterus, mucous membranes mildly dry Neck: Supple, non tender, no JVD noted CV: RRR, no murmurs rubs or gallops, peripheral pulses intact and equal Resp: Moderate diffuse Rhonchi with diffuse moderate expiratory wheezing, Mildly tachypneic at rest but speaks full sentences, wet sounding cough, barrel chested Abd: Soft, non tender, no rebound masses or guarding, +BS Extr: Moderate clubbing of all distal digits, no cyanosis, Trace bilateral pedal pitting edema Neuro: Grossly intact, no focal weakness Skin: Mildly diaphoretic, but warm Psych: Appropriate mood and affect IVs and Medications Medications Reviewed: Medications were reviewed in detail Lab and Diagnostics Result Diagram: 07/04/1724407/04/17244 Microbiology PCR positive for Rhinovirus MRSA screen positive prelim X-Rays, CTs and MRIs CT ANGIO CHEST PULMONARY EMBOLISM IMPRESSION: 1. Limited examination demonstrating no large size central pulmonary embolus. Evaluation of the more peripheral pulmonary vasculature is limited by artifact. 2. No evidence of acute process. 3. Concordant with preliminary interpretation. Dictated by: Chanel Price M.D. on 07/01/2017 at 8:09 Approved by: Chanel Price M.D. on 07/01/2017 at 8:13 X-RAY CHEST ONE VIEW, PORTABLE IMPRESSION: Left basilar atelectasis versus aspiration or pneumonia. Correlate clinically. Dictated by: Ravindra LOVELL Interpreted: Vasquez Martin MD on 07/02/2017 at 14 :59 Approved by: Vasquez Martin M.D. on 07/02/2017 at 17:24 . Additional Diagnostics DateTimeAnalyzed 05:24:44 -_ pH ____7.424 - 7.350 7.450 pCO2 ___47.5__ -mmHg 35.0 45.0 pO2 ___67.7__ -mmHg 80.0 100 HCO3- ___31.1__ -mmol/L 22.0 26.0 ABE ____5.8__ -mmol/L -2.0 2.0 Assessment & Plan Patient is a 62 y/o male with past medical history of COPD who has had three days of increased shortness of breath and cough with intermittent yellow sputum production. Following admission the patient had increased Work of breathing, so he was transitioned to Bipap. Acute on chronic hypercapnic hypoxemic respiratory failure secondary to COPD exacerbation, POA, Active -CTA unremarkable on admission other than COPD. -Continue Duonebs q6h scheduled and PRN Albuterol. Continue Solumedrol with plans for titration as he responds to therapy -Continue BiPAP at 10/5 today. Continue to wean down as tolerated -With his Severe COPD, will titrate O2 target at 88-92% -Reasonable to continue Ceftriaxone an Azithromycin due to the new LLL infiltrate -Can give Fentanyl 50mcg Q4h for anxiety, respiratory distress, or air hunger. He has responded well to fentanyl which improved his work of breathing and ventilation while on Bipap. - Encourage Acapella and PT as tolerated - Down to Solumedrol 40mg Q12h. He was a bit tight and wheezy on 07/04 and was given an additional 40mg IV. -Repeat ABG and CXR in AM. -Recommend Flu and Pneumovax if not UTD Hypertension (Uncontrolled), -Stable, as managed by primary team Anxiety, POA, chronic. Active -Preferably use the Fentanyl for his anxiety and air hunger. We appreciate the consult, will continue follow along with this patient until he is more stable respiratory lane Pain Evaluation: Adequate Pain Control GI Prophylaxis: H2 alla VTE Prophylaxis: Sub-Q Heparin (Unfractionated) VTE Mechanical Devices: Intermittant Pneumatic CD Resuscitation Status: CPR: Attempt Resuscitation Time spent CPT 32423 Attending Statement Patient seen and examined. Pertinent labs and imaging reviewed. Findings reviewed and discussed with the resident. Changes made verbally with the resident and/or directly on this document. Agree with the above. Miki Raymond DO Jul 04, 2017 07:48 Rusty Mota MD Jul 05, 2017 14:24
--- NOTE | 2017-07-04 18:20 | NUR ---
SOB Pt reported SOB this afternoon, Pt's RR ~28, and reporting anxiety. Pt's SPO2 sats 92/93% on 1.5L via nasal cannula. Pt given PRN xanax PO and RT notified who administered a breathing Tx. Pt reported improvement in breathing and was able to work with PT ~30 min - 1 hr after interventions.
[2017-07-05] VITALS (17 sets, daily range): BP systolic 135–151; BP diastolic 79–91; PULSE 76–97; RESP 22–30; O2SAT 91–94
[2017-07-05] MEDS: Heparin 5,000 Unit/mL Inj SUBQ SCH ×4 (00:41→23:38)
[2017-07-05] MEDS: ALPRAZolam 0.5 mg Tablet PO PRN ×3 (00:41→19:32)
[2017-07-05] MEDS: Albuterol-Ipratropium 3 mL Inhalation Solution NEB SCH ×8 (00:48→23:58)
[2017-07-05 02:57] LABS: BASOPHILS % (AUTO) 0.1 % (0-3); EOSINOPHILS % (AUTO) 0 % (0-5); MONOCYTES % (AUTO) 4.9 % (4-12); Mean Corpuscular Hemoglobin 33.9 pg (27.0-35.0); Mean Corpuscular Volume 98.8 fL (81-100); NEUTROPHILS % (AUTO) 85.3 % (40-74); Platelet Count 290 bil/L (150-400)
[2017-07-05 03:17] LABS: Magnesium 1.9 mg/dL (1.6-2.6); Phosphorus 2.8 mg/dL (2.5-4.9)
--- NOTE | 2017-07-05 06:17 | NUR ---
Respiratory Patient experiencing frequent tight, congested coughing overnight. Coarse breath sounds bilaterally with expiratory wheezes. Some relief from scheduled nebulizer treatments. Xanax given x2 and fentanyl 25 mcg x1 with partial relief of anxiety and feelings of air hunger. No BiPAP overnight; maintaining SpO2 90-93% on 1L via nasal cannula.
[2017-07-05] MEDS: Insulin LISPRO 300 Unit/3 mL Inj SUBQ SCH ×4 (08:34→21:21)
[2017-07-05] MEDS: MethylprednisoLONE Sodium Succinate 40 mg/mL Inj IVPUSH SCH ×2 (08:35→19:33)
[2017-07-05] MEDS: Polyethylene Glycol (PEG) 17 Gm Powder PO SCH (08:35)
[2017-07-05] MEDS: guaiFENesin 600 mg ER12 Tablet PO SCH ×2 (08:36→19:32)
[2017-07-05] MEDS: guaiFENesin DM 200-20 mg/10 mL Syrup PO PRN ×2 (12:20→23:37)
--- NOTE | 2017-07-05 12:58 | NUR ---
Respiratory/anxiety pt continues to report persistent cough, non productive. lung sounds very course throughout. PRN robitussin given x1. anxiety continues. pt given prn xanax, doses spaced out for effective coverage. will continue to monitor.
--- NOTE | 2017-07-05 13:41 | NUR ---
Upon arrival to pt's room to give neb , Pt in severe respiratoy distress. Afer neb tx pt placed on bipap and physician notifed.
--- NOTE | 2017-07-05 16:59 | DRSVH ---
PROCEDURE: X-RAY CHEST ONE VIEW, PORTABLE ([id number]) INDICATIONS: wheezing TECHNIQUE: One view of the chest was acquired. COMPARISON: None. FINDINGS: Surgical changes and devices: None. Lungs and pleura: No pleural effusions or pneumothorax. Lungs are clear on the right but again show s what appears to be a moderate pneumonia in the left. Mediastinum: Mediastinal contours appear normal. Heart size is normal. Bones and chest wall: No suspicious bony lesions. Overlying soft tissues appear unremarkable. IMPRESSION: Left lung base pneumonia, moderate in severity. Dictated by: Vasquez Martin M.D. on 07/05/2017 at 16:56 Approved by: Vasquez Martin M.D. on 07/05/2017 at 16:57
--- NOTE | 2017-07-05 17:42 | NUR ---
Social Work Note: Continued Discharge Planning Data& Assessment: Per MD order to work on nebulizer treatment options and pricing, LOLLYPOP MACHINE OPERATOR spoke with [facility] which has the $4 medication program and some of the cheaper options for medications in the community. Pt also stated to LOLLYPOP MACHINE OPERATOR that this is wear he gets most of his medications due to their $4 medication program. LOLLYPOP MACHINE OPERATOR discovered that pt is able to obtain Abulterol Sulfate for $9.75 for one box which contains 25 vials and Ipatropiam Hallam for $4 for one box which has 25 vials also. This was communicated to MD who explained this combination of nebulizer treatments on a daily basis would be the preference for pt and the pt would require four boxes of each medication per month which would amount to a little under $56 a month. LOLLYPOP MACHINE OPERATOR met with pt at bedside to discuss this cost, pt is agreeable to the cost. Pt confirmed he plans to connect with [facility] for secondary insurance coverage or to sign up for Medicare Part D for Prescription drug coverage. LOLLYPOP MACHINE OPERATOR to still explore nebulizer coverage under Medicare. LOLLYPOP MACHINE OPERATOR to continue to follow. Plan: Anticipated discharge home via POV when medically ready. LOLLYPOP MACHINE OPERATOR to still explore nebulizer coverage under Medicare and aid pt in obtaining a nebulizer at time of discharge per MD order. LOLLYPOP MACHINE OPERATOR to continue to follow. DELMIS Raman
--- NOTE | 2017-07-05 17:42 | NUR ---
SUKI Signed DELMIS Raman
--- NOTE | 2017-07-05 17:56 | PCM.PNMED ---
Subjective Date of Service Jul 05, 2017 Subjective Patient was having some increased wheezing this afternoon. Denies any chest pain. Exam Vital Signs Vital Sign - Last Date Time Temp Pulse Resp B/P Pulse Ox O2 Delivery O2 Flow Rate FiO2 07/05/17 16:23 91 28 93 Nasal Cannula 1.00 94 07/05/17 16:09 36.9 135/79 07/05/17 13:34 25 Intake and Output 07/04/17 07/04/17 07/05/17 Cumulative From/Thru 15:00 23:00 07:00 06/30/17 21:45 - 07/05/17 06:39 Intake Total 1208 ml 344 ml 6988 ml Output Total 650 ml 750 ml 7575 ml Balance 558 ml -406 ml -587 ml Intake Oral 1000 ml 344 ml 5390 ml IV Total 208 ml 1598 ml Output Urine Total 650 ml 750 ml 7575 ml # Voids 1 # Bowel Movements 0 Exam Constitutional: Middle-aged male in mild respiratory distress Head: Normocephalic atraumatic Chest: Diffuse expiratory wheezes Cor: Regular rate and rhythm S1-S2 without murmur Abdomen: Soft nontender bowel sounds present Extremities: Trace bilateral pedal edema Psych: Mood and affect are appropriate Neuro: Alert and oriented 3, motor strength is intact bilaterally IVs and Medications Medications Reviewed: Medications were reviewed in detail Lab and Diagnostics Laboratory Tests 72 Hours Test 07/03/17 02:25 07/04/17 02:45 07/05/17 02:35 White Blood Count 17.6th/mm3 (3.8-10.1) 15.6th/mm3 (3.8-10.1) 14.3th/mm3 (3.8-10.1) Red Blood Count 4.94mil/mm3 (4.40-5.80) 5.12mil/mm3 (4.40-5.80) 4.92mil/mm3 (4.40-5.80) Hemoglobin 16.9g/dL (13.8-17.2) 17.1g/dL (13.8-17.2) 16.7g/dL (13.8-17.2) Hematocrit 48.5% (41.0-50.0) 50.1% (41.0-50.0) 48.6% (41.0-50.0) Mean Corpuscular Volume 98.2fL (81-100) 97.9fL (81-100) 98.8fL (81-100) Mean Corpuscular Hemoglobin 34.2pg (27.0-35.0) 33.4pg (27.0-35.0) 33.9pg (27.0-35.0) Mean Corpuscular Hemoglobin Concent 34.8% (32.0-37.0) 34.1% (32.0-37.0) 34.4% (32.0-37.0) Red Cell Distribution Width 13.2% (12.3-15.4) 13.2% (12.3-15.4) 12.8% (12.3-15.4) Platelet Count 294bil/L (150-400) 293bil/L (150-400) 290bil/L (150-400) Neutrophils (%) (Auto) 87.0% (40-74) 84.5% (40-74) 85.3% (40-74) Lymphocytes (%) (Auto) 8.3% (14-46) 9.5% (14-46) 8.5% (14-46) Monocytes (%) (Auto) 3.9% (4-12) 5.3% (4-12) 4.9% (4-12) Eosinophils (%) (Auto) 0% (0-5) 0% (0-5) 0% (0-5) Basophils (%) (Auto) 0.1% (0-3) 0.1% (0-3) 0.1% (0-3) Sodium Level 136mEq/L (134-144) 136mEq/L (134-144) 136mEq/L (134-144) Potassium Level 4.7mEq/L (3.5-5.2) 4.9mEq/L (3.5-5.2) 5.3mEq/L (3.5-5.2) Chloride Level 98mEq/L (97-108) 96mEq/L (97-108) 99mEq/L (97-108) Carbon Dioxide Level 27mmol/L (18-29) 25mmol/L (18-29) 27mmol/L (18-29) Blood Urea Nitrogen 27mg/dL (8-27) 25mg/dL (8-27) 28mg/dL (8-27) Creatinine 1.13mg/dL (0.76-1.27) 0.80mg/dL (0.76-1.27) 0.84mg/dL (0.76-1.27) Estimat Glomerular Filtration Rate 69mL/min (>59) 103mL/min (>59) 98mL/min (>59) Glucose Level 176mg/dL (60-99) 190mg/dL (60-99) 225mg/dL (60-99) Hemoglobin A1c 5.2% (4.8-5.6) Calcium Level 9.4mg/dL (8.5-10.1) 9.4mg/dL (8.5-10.1) 9.1mg/dL (8.5-10.1) Phosphorus Level 3.0mg/dL (2.5-4.9) 3.3mg/dL (2.5-4.9) 2.8mg/dL (2.5-4.9) Magnesium Level 1.8mg/dL (1.6-2.6) 1.9mg/dL (1.6-2.6) 1.9mg/dL (1.6-2.6) Total Bilirubin 0.2mg/dL (0.0-1.2) 0.2mg/dL (0.0-1.2) Aspartate Amino Transf (AST/SGOT) 25U/L (0-50) 19U/L (0-50) Alanine Aminotransferase (ALT/SGPT) 29U/L (0-44) 30U/L (0-44) Alkaline Phosphatase 87U/L (25-160) 76U/L (25-160) Total Protein 6.3g/dL (6.4-8.4) 5.6g/dL (6.4-8.4) Albumin 3.8g/dL (3.4-5.0) 3.4g/dL (3.4-5.0) Prothrombin Time 10.2sec (8.1-12.5) Prothromb Time International Ratio 0.95ratio Procalcitonin 0.06ng/mL (0.00-0.08) Result Diagram: 07/05/17 0235 07/05/17 0235 Microbiology PCR positive for Rhinovirus MRSA screen positive prelim X-Rays, CTs and MRIs CT ANGIO CHEST PULMONARY EMBOLISM IMPRESSION: 1. Limited examination demonstrating no large size central pulmonary embolus. Evaluation of the more peripheral pulmonary vasculature is limited by artifact. 2. No evidence of acute process. 3. Concordant with preliminary interpretation. Dictated by: Chanel Price M.D. on 07/01/2017 at 8:09 Approved by: Chanel Price M.D. on 07/01/2017 at 8:13 X-RAY CHEST ONE VIEW, PORTABLE IMPRESSION: Left basilar atelectasis versus aspiration or pneumonia. Correlate clinically. Dictated by: Ravindra FAITH Interpreted: Vasquez Martin MD on 07/02/2017 at 14 :59 Approved by: Vasquez Martin M.D. on 07/02/2017 at 17:24 . Additional Diagnostics DateTimeAnalyzed 05:24:44 -_ pH ____7.424 - 7.350 7.450 pCO2 ___47.5__ -mmHg 35.0 45.0 pO2 ___67.7__ -mmHg 80.0 100 HCO3- ___31.1__ -mmol/L 22.0 26.0 ABE ____5.8__ -mmol/L -2.0 2.0 Assessment & Plan Patient is a 62 y/o male with past medical history of COPD who has had three days of increased shortness of breath and cough with intermittent yellow sputum production. Following admission the patient had increased Work of breathing, so he was transitioned to Bipap. Acute hypercapnic respiratory failure secondary to COPD exacerbation, POA, Active -inital CTA unremarkable, no PE, no infiltrate. CXR clean.Procalc negative -Solu-medrol 40 mg Q8 -continue duonebs q4h scheduled with Q4 PRN alternating, albuterol q2h prn, -BiPAP started 9/ pm, serial ABG if needed. -Pulmonary medicine has been consulted and we appreciate their recommendations -O2 supplement target>92-95%, pt doesn't have baseline hypercapnia. -Will DC Ceftriaxone as Procalc has been negative twice and WBC elevation is consistent with steroids, will maintain azithromycin for immunological properties Hypertension (Uncontrolled), POA, assumed chronic. Improved -Started Lisinopril 10mg BID and monitor -controlled, continue ACEI for now Anxiety, POA, chronic. Active -Using Xanax 0.5 mg PO PRN, this is a substantial reduction of his home dosing so as not to induce respiratory depression. GI Prophylaxis: H2 alla VTE Prophylaxis: Sub-Q Heparin (Unfractionated) VTE Mechanical Devices: Intermittant Pneumatic CD Resuscitation Status: CPR: Attempt Resuscitation Time spent 20 minutes Danni Singleton MD Jul 05, 2017 17:56
[2017-07-05] MEDS ORDERED: .Epic Conversion Completed XX PRN (18:10)
--- NOTE | 2017-07-05 22:57 | NUR ---
Respiratory Pt a/ox3- mildly anxious- PRN Xanax given at HS. sp02 maintained low-mid 90s on 1 L NC- Lung sounds significantly coarse and ronchi- non productive cough noted. Pt requesting to take shower- paged for order to remove tele. Care ongoing.
--- NOTE | 2017-07-06 16:48 | DRSVH ---
PROCEDURE: X-RAY CHEST ONE VIEW, PORTABLE ([id number]) INDICATIONS: COPD exacerbation poss PNA TECHNIQUE: One view of the chest was acquired. COMPARISON: [facility], CR, XR CHEST 1VW (PORTABLE), 07/02/2017, 14:44. FINDINGS: Surgical changes and devices: None. Lungs and pleura: No pleural effusions or pneumothorax. Lungs are clear, aside from air space opaci ty involving the left lung base. Mediastinum: Mediastinal contours appear normal. Heart size is normal. Bones and chest wall: No suspicious bony lesions. Overlying soft tissues appear unremarkable. IMPRESSION: Persistent left basilar atelectasis versus aspiration or pneumonia. Correlate clinically . Dictated by: Rvaindra Whitt RRA Interpreted: Juanis Gatica MD on 07/04/2017 at 8:23 Approved by: Juanis Gatica M.D. on 07/06/2017 at 16:46
== END 2017-07-06 01:20 | disposition admitted as inpatient to this hospital (09) | DRG 189 ==
LOC: SED 21:42 → MPC 07-01 01:55 → PCC 07-02 12:49
PROVIDERS: ADMIT Internal Medicine; ATTEND Specialist
DX: J96.02 Acute respiratory failure with hypercapnia (principal); J44.1 Chronic obstructive pulmonary disease with (acute) exacerbation